=== PATIENT | female | born 1995 | race Caucasian/White ===

== ENCOUNTER 2018-06-13 12:22 | Emergency (ER) | payer MEDICAID ==
[~2018-06-13] VITALS: Ht 165.1 cm; Wt 54.4 kg
--- NOTE | 2018-06-13 13:43 | NUR ---
Patient discharged to home in stable conditon. Written and verbal after care instructions given. Patient verbalizes understanding of instructions.
[2018-06-13 13:44] VITALS: BP 106/74
== END 2018-06-13 13:45 | disposition home or self-care (01) ==
LOC: ER 12:23
DX: S60.051A Contusion of right little finger without damage to nail, initial encounter (principal); S63.616A Unspecified sprain of right little finger, initial encounter; Z88.8 Allergy status to other drugs, medicaments and biological substances; W22.8XXA Striking against or struck by other objects, initial encounter; Y93.89 Activity, other specified; Y92.89 Other specified places as the place of occurrence of the external cause; Y99.8 Other external cause status
CPT/HCPCS: 73140; A4663

== ENCOUNTER 2018-07-08 13:45 | Emergency (ER) | payer MEDICAID ==
[~2018-07-08] VITALS: Ht 167.6 cm; Wt 59.0 kg
--- NOTE | 2018-07-08 14:23 | NUR ---
Pt's mother arrived and is at bedside.
--- NOTE | 2018-07-08 14:41 | NUR ---
PT IS IN ROOM #1A. DR RODRIGUEZ EVALUATED THE PT.
[2018-07-08 15:32] LABS: *URINE HCG, QUAL NEGATIVE (NEGATIVE)
[2018-07-08 15:44] LABS: *AMPHETAMINE, URINE NEGATIVE (NEGATIVE); *BARBITURATE, URINE NEGATIVE (NEGATIVE); *CANNABINOID, URINE NEGATIVE (NEGATIVE); *COCCAINE, URINE NEGATIVE (NEGATIVE); *OPIATE, URINE NEGATIVE (NEGATIVE); *PHENCYCLIDINE SCREEN,URINE NEGATIVE (NEGATIVE)
[2018-07-08 16:51] LABS: ALANINE AMINOTRANSFERASE 24 U/L (14-59); ALKALINE PHOSPHATASE 76 U/L (50-136); ASPARTATE AMINOTRANSFERASE 23 U/L (15-37); BILIRUBIN,DIRECT < 0.1 mg/dL (0.0-0.2); BILIRUBIN,TOTAL 0.2 mg/dL (0.2-1.0); CARBON DIOXIDE 23 mmol/L (21-32); CHLORIDE 111 mmol/L (98-107); CREATININE 0.7 mg/dL (0.6-1.3); GLUCOSE 91 mg/dL (74-106); POTASSIUM 3.7 mmol/L (3.5-5.1); UREA NITROGEN, BLOOD 12 mg/dL (7-18)
[2018-07-08] MEDS ORDERED: IV NORMAL SALINE 1000 ML BAG IV ONE (17:00)
--- NOTE | 2018-07-08 18:47 | NUR ---
PT WAS D/C'd TO HOME. D/C INSTRUCTIONS GIVEN TO THE PT AND TO HER MOTHER. GAIT IS STABLE. NO N/V, NO SOB, PT DENIES PAIN.
[2018-07-08 18:52] VITALS: BP 125/73
== END 2018-07-08 18:52 | disposition home or self-care (01) ==
LOC: ER 13:45
DX: F10.129 Alcohol abuse with intoxication, unspecified (principal); E87.0 Hyperosmolality and hypernatremia; E87.8 Other disorders of electrolyte and fluid balance, not elsewhere classified; Z88.8 Allergy status to other drugs, medicaments and biological substances; Y90.8 Blood alcohol level of 240 mg/100 ml or more
CPT/HCPCS: 36415; 70450; 72125; 80048; 80076; 80307; 82962; 84703; 99284; G0480; A4663; J7030

== ENCOUNTER 2020-04-15 18:32 | Emergency (ER) | payer MEDICAID ==
[~2020-04-15] VITALS: Ht 172.7 cm; Wt 61.2 kg
[2020-04-15] MEDS ORDERED: LAMO25TA5 PO (18:56)
[2020-04-15] MEDS ORDERED: VALP250S3 PO (18:56)
[2020-04-15] MEDS ORDERED: LAMOTRIGINE 25 MG TABLET PO SCH (19:00)
[2020-04-15] MEDS ORDERED: VALPROIC ACID 250 MG CAPSULE PO SCH (19:00)
[2020-04-15] MEDS ORDERED: DIVALPROEX 250 MG TABLET.DR PO ONE (19:15)
[2020-04-15] MEDS ORDERED: IV NORMAL SALINE 1000 ML BAG IV ONE (19:30)
[2020-04-15] MEDS ORDERED: LAMOTRIGINE 100 MG TABLET ONE (19:35)
[2020-04-15 19:36] LABS: CARBON DIOXIDE 25 mmol/L (21-32); CHLORIDE 100 mmol/L (98-107); CREATININE 0.8 mg/dL (0.6-1.3); GLUCOSE 111 mg/dL (74-106); POTASSIUM 3.7 mmol/L (3.5-5.1); UREA NITROGEN, BLOOD 9 mg/dL (7-18)
[2020-04-15 19:41] LABS: VALPROIC ACID < 3 ug/mL (50-100)
[2020-04-15] MEDS ORDERED: LAMOTRIGINE 100 MG TABLET PO SCH (21:00)
== END 2020-04-15 20:59 | disposition home or self-care (01) ==
LOC: ER 18:37
DX: G40.909 Epilepsy, unspecified, not intractable, without status epilepticus (principal); Z91.14 Patient's other noncompliance with medication regimen; Z79.899 Other long term (current) drug therapy; Z88.8 Allergy status to other drugs, medicaments and biological substances
CPT/HCPCS: 36415; 80164; A4663; J3490

== ENCOUNTER 2021-03-18 15:50 | Inpatient (IN) | payer MEDICAID ==
[~2021-03-18] VITALS: Ht 165.1 cm; Wt 56.7 kg
[~2021-03-18 15:50] MED LIST: LAMO25TA5 PO; VALP250S3 PO
[2021-03-18] MEDS ORDERED: IV NORMAL SALINE 1000 ML BAG IV ONE (16:30)
[2021-03-18] MEDS ORDERED: LACO100T2 PO (16:33)
[2021-03-18] MEDS ORDERED: levETIRAcetam IV 1,000 MG in IV DEXTROSE 5% 100 ML IV ONE (16:45)
[2021-03-18] MEDS ORDERED: levETIRAcetam 500 MG/5 ML VIAL IV ONE (16:47)
[2021-03-18 16:59] LABS: HEMATOCRIT 37.5 % (31.2-41.9); MEAN CORPUSCULAR HEMOGLOBIN 29.8 uug (24.7-32.8); MEAN CORPUSCULAR VOLUME 89.1 fL (75.5-95.3); PLATELET COUNT (AUTO) 248 K/uL (179-408)
[2021-03-18 17:03] LABS: CREATININE 0.7 mg/dL (0.6-1.3); POTASSIUM 3.9 mmol/L (3.5-5.1)
--- NOTE | 2021-03-18 17:04 | NUR ---
PT out of ER for CT.
[2021-03-18 17:08] LABS: BILIRUBIN,DIRECT 0.1 mg/dL (0.0-0.2); BILIRUBIN,TOTAL 0.2 mg/dL (0.2-1.0); TOTAL PROTEIN, SERUM 7.7 g/dL (6.4-8.2)
--- NOTE | 2021-03-18 17:25 | NUR ---
Pt back from Ct scan, resting in bed, pt's mother at the bedside.
[2021-03-18] MEDS ORDERED: ACETAMINOPHEN 325 MG TABLET PO ONE (17:30)
[2021-03-18] MEDS ORDERED: ACETAMINOPHEN 325 MG TABLET ONE (17:45)
--- NOTE | 2021-03-18 23:48 | NUR ---
Patient appears in no distress. Vitals are stable. Awaiting to hear back from [facility]. per parcel post order clerk, still no bed available at [facility] [place].
--- NOTE | 2021-03-19 00:16 | NUR ---
Yevgeniy authorized patient to stay at [facility] since no bed available at [facility] at this time. Paged [facility] for panell call.
[2021-03-19] MEDS ORDERED: ONDANSETRON 4 MG/2 ML VIAL IV PRN (00:30)
[2021-03-19] MEDS ORDERED: MAGNESIUM HYDROXIDE 30 ML LIQUID UDC PO PRN (00:30)
[2021-03-19] MEDS ORDERED: ACETAMINOPHEN 325 MG TABLET PO PRN (00:30)
[2021-03-19] MEDS ORDERED: REMEDY ESSENTIAL ZINC PASTE 113 GM TP PRN (00:30)
--- NOTE | 2021-03-19 00:54 | NUR ---
Pt. admitted to Med/Surg , under care of Dr. Figueroa White Dx: Seizure Belongs List completed
[2021-03-19] MEDS ORDERED: levETIRAcetam IV 1,000 MG in IV DEXTROSE 5% 100 ML IV SCH (05:00)
[2021-03-19] MEDS ORDERED: levETIRAcetam 500 MG/5 ML VIAL IV ONE (05:20)
--- NOTE | 2021-03-19 06:10 | NUR ---
pt is resting comfortably in bed. vitals are stable. will continue to monitor.
[2021-03-19] MEDS ORDERED: PANTOPRAZOLE SODIUM 40 MG TABLET.DR PO SCH (07:00)
--- NOTE | 2021-03-19 07:08 | NUR ---
PT IS IN BED #1A. ULTRASOUND EXAM IN PROCESS.
[2021-03-19] MEDS ORDERED: PANTOPRAZOLE SODIUM 40 MG TABLET.DR PO ONE (08:18)
[2021-03-19 13:00] LABS: *BILIRUBIN,URIN NEGATIVE (NEGATIVE); *BLOOD, URINE NEGATIVE (NEGATIVE); *CLARITY,URINE CLEAR (CLEAR); *COLOR,URINE LIGHT YELLOW (YELLOW); *KETONES,URINE NEGATIVE (NEGATIVE); *UROBILINOGEN,URINE 0.2 E.U./dl (NORMAL); LEUKOCYTE ESTERASE ,URINE NEGATIVE (NEGATIVE); NITRITE, URINE NEGATIVE (NEGATIVE); PH,URINE 7.5 (5.0-8.0); UGLUCOSE NEGATIVE (NEGATIVE)
--- NOTE | 2021-03-19 13:49 | NUR ---
PT WAS D/C'd TO HOME AFTER DR SEYMOUR EVALUATION. D/C INSTRUCTIONS GIVEN TO THE PT BY DR SEYMOUR. GAIT IS STABLE. NO S/S OF SEIZURE. PT DENIES PAIN. NO N/V. NO SOB. NO DIZZINESS. NO S/S OF ACUTE DISTRES AT THIS TIME. PT LEFT HOSPITAL WITH HER MOTHER.
[2021-03-19 13:54] VITALS: BP 128/72
[2021-03-19] MEDS ORDERED: LEVE500T9 PO (15:21)
== END 2021-03-19 14:06 | disposition home or self-care (01) | DRG 53 ==
LOC: ER 15:51 → TRANSITION 03-19 04:59
PROVIDERS: ADMIT Student in an Organized Health Care Education/Training Program; ATTEND Student in an Organized Health Care Education/Training Program
DX: G40.901 Epilepsy, unspecified, not intractable, with status epilepticus (principal); Z20.822 Contact with and (suspected) exposure to COVID-19; Z79.899 Other long term (current) drug therapy; Z82.49 Family history of ischemic heart disease and other diseases of the circulatory system; Z86.16 Personal history of COVID-19; Z83.3 Family history of diabetes mellitus; Z87.828 Personal history of other (healed) physical injury and trauma
CPT/HCPCS: 36415; 70030-TC; 70450; 71045; 83605; 85025; 85730; 87040; 93005; A4663; C1758; G0378; J1953; J3490; J7030; U0003

== ENCOUNTER 2021-09-07 17:00 | Inpatient (IN) | payer MEDICAID ==
[~2021-09-07] VITALS: Ht 165.1 cm; Wt 56.7 kg
[~2021-09-07 17:00] MED LIST changes: +LACO100T2 PO; +LEVE500T9 PO; -VALP250S3 PO
--- NOTE | 2021-09-07 17:10 | NUR ---
DR JENSEN AT BEDSIDE FOR MSE.
[2021-09-07] MEDS ORDERED: levETIRAcetam IV 1,000 MG in IV DEXTROSE 5% 100 ML IV ONE (17:15)
[2021-09-07 17:27] LABS: ABG BASE EXCESS 0.9 mmol/L; ABG HCO3 24.2 mmol/L; ABG PCO2 34.4 mmHg (35.0-45.0); ABG PH 7.465 (7.350-7.450); ABG PO2 51.6 mmHg (75.0-100.0); ABG SITE LEFT BRACHIAL; ABG TOTAL HEMOGLOBIN 13.6 G/dL (12.0-16.0); COHb 0.3 % (0.5-1.5); MetHb 0.2 % (0.0-1.5); O2Hb 88.5 % (94.0-97.0)
[2021-09-07 17:43] LABS: HEMATOCRIT 37.8 % (31.2-41.9); MEAN CORPUSCULAR HEMOGLOBIN 28.3 uug (24.7-32.8); MEAN CORPUSCULAR VOLUME 86.7 fL (75.5-95.3); PLATELET COUNT (AUTO) 318 K/uL (179-408)
[2021-09-07 17:45] LABS: CARBON DIOXIDE 27 mmol/L (21-32); CHLORIDE 101 mmol/L (98-107); CREATININE 0.8 mg/dL (0.6-1.3); GLUCOSE 125 mg/dL (74-106); POTASSIUM 3.8 mmol/L (3.5-5.1); UREA NITROGEN, BLOOD 11 mg/dL (7-18)
[2021-09-07] MEDS ORDERED: MAGNESIUM SULFATE/D5W 100 ML IV SCH (17:45)
[2021-09-07 17:50] LABS: ALANINE AMINOTRANSFERASE 16 U/L (14-59); ALKALINE PHOSPHATASE 76 U/L (50-136); ASPARTATE AMINOTRANSFERASE 15 U/L (15-37); BILIRUBIN,TOTAL 0.4 mg/dL (0.2-1.0); TOTAL PROTEIN, SERUM 8.2 g/dL (6.4-8.2)
[2021-09-07 18:13] LABS: *BILIRUBIN,URIN NEGATIVE (NEGATIVE); *BLOOD, URINE NEGATIVE (NEGATIVE); *CLARITY,URINE CLEAR (CLEAR); *COLOR,URINE YELLOW (YELLOW); *KETONES,URINE TRACE (NEGATIVE); *UROBILINOGEN,URINE 0.2 E.U./dl (NORMAL); LEUKOCYTE ESTERASE ,URINE NEGATIVE (NEGATIVE); NITRITE, URINE NEGATIVE (NEGATIVE); PH,URINE 6.5 (5.0-8.0); UGLUCOSE NEGATIVE (NEGATIVE)
[2021-09-07 18:18] LABS: MAGNESIUM 1.8 mg/dL (1.8-2.4); PHOSPHOROUS 4.3 mg/dL (2.5-4.9)
[2021-09-07 18:28] LABS: BACTERIA,URINE FEW /HPF (NONE SEEN); RBC,URINE 0-3 /HPF (0-3); SQUAMOUS EPITHELIAL CELL,UR FEW /HPF (NONE SEEN); WBC,URINE 0-3 /HPF (0-3)
[2021-09-07] MEDS ORDERED: ACETAMINOPHEN 650 MG/20.3 ML LIQUID UDC PO ONE (18:30)
[2021-09-07] MEDS ORDERED: IV NORMAL SALINE 500 ML BAG IV ONE (18:30)
[2021-09-07] MEDS ORDERED: ACETAMINOPHEN 325 MG TABLET PO ONE (18:45)
[2021-09-07] MEDS ORDERED: ACETAMINOPHEN 325 MG TABLET ONE (18:47)
--- NOTE | 2021-09-07 19:10 | NUR ---
Received thorough report from staff Lisan using sbar method. All questions answered. Nothing pending except Lamictal level and regal consult MD-To MD. Pt stable, VSS. AAOx4 with good color, temp and appearance. PERRLA, completely lucid and able to carry conversation, NAD, no JVD, no trach dev, no dental lesions or caries. Denies any pain, sob, n/v, dizziness or discomfort. Pt states she feels fine. States that szs today were not grand mal, states that she has had grand mals in the past but thge ones today where not grand mals, but closer to petit mals or absence szs with some minor extremity convultions. No post-ictal observed by AMRN. Pt is pending admission for observation of sz activity, decision will be made after lamictal levels and diagnostics are back, and regal attending is consulted. SBP --118/88, 97%RA, 16rpm, 90 bpm NSR, RRR, normal s1s2, no ectopy, m/r/g, Lungs ctab, pt states that besides the SZ d/o, she is otherwise very healthy. Good distal pulses x4 ext, good tree puller strength. Checked on Lamictal levels, it is still pending..
--- NOTE | 2021-09-07 19:15 | NUR ---
REPORT ADA TO MUNIR COMER.
--- NOTE | 2021-09-07 19:45 | NUR ---
Pt given Dinner tray with one extra apple juice, 2 cups of jello, one cup of vanilla pudding. VSS, Pt is resting comfortably, watching TV, mom at the bedside. Pt set up to eat dinner, just before going to restroom and voiding for second time.
[2021-09-07] MEDS ORDERED: LAMOTRIGINE 25 MG TABLET PO SCH (20:30)
--- NOTE | 2021-09-07 20:30 | NUR ---
Pt finished with dinner, ate approx 80% of dinner, asked for more juice and pudding, I obliged. Pt placed back on monitor in pos of comfprt, IV fluids reconnected and initiated. VSS, 110/69, 99%RA, 80 BPM, NSR without ectopy, 16rpm.
[2021-09-07] MEDS ORDERED: levETIRAcetam 500 MG/5 ML VIAL IV ONE (21:24)
[2021-09-07] MEDS ORDERED: LAMOTRIGINE 25 MG TABLET ONE (21:31)
--- NOTE | 2021-09-07 22:45 | NUR ---
Pt to go to room 307, to Cesilia COMER
--- NOTE | 2021-09-07 23:00 | NUR ---
Pt transfered to room 307 with mother accompaning pt. Mother sent to security due to be unvaccinated. pt amb to bed, stopping by the bathroom before hand. Pt placed on bed in pos of comfort, pt oriented to room and given call button, bed dropped and rails up, BEE WORKER and floor RN at bedside for intake. Pt very thankful for services rendered. no s/sxof distress present.
--- NOTE | 2021-09-07 23:30 | NUR ---
RECEIVED PATIENT VIA GURNEY. ADMITTED TO ROOM 307, TELEMETRY UNIT, WITH DIAGNOSIS OF BREAKTHROUGH SEIZURE UNDER THE CARE OF DR. ALFARO. PATIENT IS AWAKE, ALERT, ORIENTED X4. ABLE TO MAKE NEEDS KNOWN. ORIENTED PATIENT TO ROOM, BED AND CALL LIGHT BUTTON. PATIENT DENIES BEING IN DISTRESS AT THIS TIME. ATTACHED TO TELEMONITOR, SHOWING SINUS RHYTHM. INITIAL PHYSICAL ASSESSMENT DONE. SAFETY AND SEIZURE PRECAUTIONS IN PLACE. BEDSIDE RAILS PADDED.
[2021-09-07] MEDS ORDERED: ONDANSETRON 4 MG/2 ML VIAL IV PRN (23:45)
[2021-09-07] MEDS ORDERED: ACETAMINOPHEN 325 MG TABLET PO PRN (23:45)
[2021-09-07] MEDS ORDERED: HYDROCODONE/APAP 5-325MG TABLET PO PRN (23:45)
[2021-09-07] MEDS ORDERED: LORAZEPAM 2 MG/1 ML VIAL IV PRN (23:45)
[2021-09-08 00:26] VITALS: BP 108/65
[2021-09-08 04:29] VITALS: BP 106/64
[2021-09-08 06:13] LABS: BILIRUBIN,TOTAL 0.4 mg/dL (0.2-1.0); CREATININE 0.7 mg/dL (0.6-1.3); MAGNESIUM 1.9 mg/dL (1.8-2.4); PHOSPHOROUS 3.3 mg/dL (2.5-4.9); POTASSIUM 3.7 mmol/L (3.5-5.1); TOTAL PROTEIN, SERUM 6.4 g/dL (6.4-8.2)
--- NOTE | 2021-09-08 06:15 | NUR ---
PATIENT SLEPT THROUGH THE NIGHT, WITH NO COMPLAINTS. PATIENT DENIES HAVING SEIZURE THROUGHOUT THE NIGHT. IV ACCESS INTACT. SEIZURE PRECAUTIONS MAINTAINED. CALL LIGHT WITHIN REACH.
[2021-09-08 06:39] LABS: HEMATOCRIT 32.5 % (31.2-41.9); MEAN CORPUSCULAR HEMOGLOBIN 28.6 uug (24.7-32.8); MEAN CORPUSCULAR VOLUME 87.1 fL (75.5-95.3); PLATELET COUNT (AUTO) 231 K/uL (179-408)
[2021-09-08 08:14] LABS: THYROID STIMULATING HORMONE 1.211 mIU/mL (0.358-3.740)
--- NOTE | 2021-09-08 08:42 | NUR ---
0821- alert and oriented x4, eating well. denies sob pain or seizure episodes. seen and examined by prabhu durant np with order may dc to home. pt only wanted to take 500mg keppra r/b explained but insisting she'll only take 1 tablet. danielle durant on the floor says it's ok. Addendum: 09/08/21 at 0845 by ASHLEY SPICER RN 0821- patient verbalized understanding of risks/benefits.
[2021-09-08] MEDS ORDERED: levETIRAcetam 500 MG TABLET PO SCH (09:00)
--- NOTE | 2021-09-08 12:42 | NUR ---
for discharge to home. pt verbalized understanding of all discharge instructions. no ss of pain, sob or seizure. sr on telemonitor.
--- NOTE | 2021-09-08 13:27 | NUR ---
patient was picked up by her mother park in private car, discharged to home via wc in stable condition with all her belongings intact.
== END 2021-09-08 13:25 | disposition home or self-care (01) | DRG 53 ==
LOC: ER 17:00 → TELE3 23:20
PROVIDERS: ADMIT Internal Medicine; ATTEND Nurse Practitioner Acute Care
DX: G40.409 Other generalized epilepsy and epileptic syndromes, not intractable, without status epilepticus (principal); N39.498 Other specified urinary incontinence; S09.90XS Unspecified injury of head, sequela; W19.XXXS Unspecified fall, sequela; Z79.899 Other long term (current) drug therapy; R51.9 Headache, unspecified; R79.81 Abnormal blood-gas level
CPT/HCPCS: 36415; 36600; 70450; 71045; 83605; 83735; 84100; 84146; 84443; 85025; A4663; G0378; J1953

== ENCOUNTER 2022-03-20 15:55 | Emergency (ER) | payer MEDICAID ==
[~2022-03-20] VITALS: Ht 165.1 cm; Wt 56.7 kg
[~2022-03-20 15:55] MED LIST changes: -LEVE500T9 PO
--- NOTE | 2022-03-20 16:22 | NUR ---
Dr Currie at the bedside for MSE.
[2022-03-20] MEDS ORDERED: levETIRAcetam IV 1,000 MG in IV DEXTROSE 5% 100 ML IV ONE (16:30)
[2022-03-20] MEDS ORDERED: levETIRAcetam 500 MG/5 ML VIAL IV ONE (16:35)
--- NOTE | 2022-03-20 16:37 | NUR ---
"Plan to admit" per Dr Currie. ER registration/admitting staff Sandy notified.
[2022-03-20 16:48] LABS: HEMATOCRIT 39.3 % (31.2-41.9); MEAN CORPUSCULAR HEMOGLOBIN 28.7 uug (24.7-32.8); MEAN CORPUSCULAR VOLUME 88.2 fL (75.5-95.3); PLATELET COUNT (AUTO) 272 K/uL (179-408)
[2022-03-20 16:52] LABS: *BILIRUBIN,URIN NEGATIVE (NEGATIVE); *BLOOD, URINE NEGATIVE (NEGATIVE); *CLARITY,URINE CLEAR (CLEAR); *COLOR,URINE LIGHT YELLOW (YELLOW); *KETONES,URINE NEGATIVE (NEGATIVE); *UROBILINOGEN,URINE 0.2 E.U./dl (NORMAL); LEUKOCYTE ESTERASE ,URINE NEGATIVE (NEGATIVE); NITRITE, URINE NEGATIVE (NEGATIVE); PH,URINE 5.5 (5.0-8.0); UGLUCOSE NEGATIVE (NEGATIVE)
[2022-03-20 16:59] LABS: CREATININE 0.9 mg/dL (0.6-1.3); POTASSIUM 4.1 mmol/L (3.5-5.1)
[2022-03-20 17:05] LABS: BILIRUBIN,TOTAL 0.2 mg/dL (0.2-1.0); TOTAL PROTEIN, SERUM 8.5 g/dL (6.4-8.2)
[2022-03-20 18:19] VITALS: BP 120/85
--- NOTE | 2022-03-20 18:19 | NUR ---
Patient does not wish to proceed with medical care recommended by ( dr valdivia ). Patient given information related to possible complications, up to and including , which could occur as a result of leaving the hospital at this time. Patient verbalizes understanding of risks involved due to leaving against medical advice. Patient has signed AMA form.
--- NOTE | 2022-03-20 18:19 | NUR ---
IV removed. Catheter intact and site benign. Pressure and 4x4 gauze applied to site. No bleeding noted.
== END 2022-03-20 18:20 | disposition left against medical advice (07) ==
LOC: ER 15:55
DX: G40.909 Epilepsy, unspecified, not intractable, without status epilepticus (principal); Z53.29 Procedure and treatment not carried out because of patient's decision for other reasons; Z20.822 Contact with and (suspected) exposure to COVID-19; Z88.8 Allergy status to other drugs, medicaments and biological substances
CPT/HCPCS: 99284; 96365; 87426; 80053; 81003; 85025; 36415; J1953 ×2; A4663

== ENCOUNTER 2022-06-06 14:24 | Emergency (ER) | payer MEDICAID ==
[~2022-06-06] VITALS: Ht 165.1 cm; Wt 59.0 kg
--- NOTE | 2022-06-06 14:34 | NUR ---
PT IS ION ROOM #2A. DR CORNELL EVALUATED THE PT.
--- NOTE | 2022-06-06 14:55 | NUR ---
PT WAS D/C'd TO HOME. D/C INSTRUCTIONS GIVEN TO THE PT BY DR CORNELL.
[2022-06-06 14:56] VITALS: BP 128/71
== END 2022-06-06 14:57 | disposition home or self-care (01) ==
LOC: ER 14:24
DX: G40.909 Epilepsy, unspecified, not intractable, without status epilepticus (principal); Z88.8 Allergy status to other drugs, medicaments and biological substances; Z79.899 Other long term (current) drug therapy
CPT/HCPCS: A4663